=== PATIENT | male | born 1965 | race African-American/Black ===

== ENCOUNTER 2022-07-09 13:45 | Observation (INO) ==
[2022-07-09 14:43] LABS: Basophils # 0.1 K/mcL (0.0-0.2); Basophils % 0.4 %; Eosinophils # 0.1 K/mcL (0.0-0.6); Hemoglobin 14.2 g/dL (12.9-16.9); Immature Granulocytes % 0.4 % (0-4); Lymphocytes # 1.6 K/mcL (0.6-4.6); Lymphocytes % 13.5 %; Mean Corpuscular HGB Conc 32.3 g/dL (31.6-35.5); Mean Corpuscular Hemoglobin 29.3 pg (28.0-33.3); Mean Corpuscular Volume 90.9 fL (83.0-100.0); Mean Platelet Volume 10.3 fL (9.4-12.4); Monocytes # 0.8 K/mcL (0.0-1.3); Monocytes % 6.4 %; Neutrophils # 9.4 K/mcL (1.6-8.9); Platelet Count 286 K/mcL (140-400); Red Blood Count 4.84 M/mcL (4.19-5.50); Red Cell Distribution Width 15.2 % (11.5-14.5); Segmented Neutrophils % 78.3 %; White Blood Count 11.9 K/mcL (4.3-11.1)
[2022-07-09] MEDS ORDERED: *HR* Metoprolol 5 MG/5 ML VIAL IVP ONE ×2 (14:54→16:43)
[2022-07-09] MEDS ORDERED: Acetaminophen 325 MG TABLET PO ONE (14:54)
[2022-07-09 15:08] LABS: INR 1.4; Prothrombin Time 15.4 Seconds (9.4-12.1)
[2022-07-09 15:22] LABS: Alanine Aminotransferase 14 Units/L (7-52); Albumin 3.7 g/dL (3.5-5.7); Albumin/Globulin Ratio 1.3 (1.1-2.2); Alkaline Phosphatase 63 Units/L (34-104); Aspartate Amino Transferase 15 Units/L (13-39); BUN/Creatinine Ratio 17 (6-26); Bilirubin,Total 0.4 mg/dL (0.3-1.0); Blood Urea Nitrogen 20 mg/dL (6-20); Calcium 8.7 mg/dL (8.6-10.3); Carbon Dioxide 27 mEq/L (23-29); Chloride 105 mEq/L (98-107); Globulin 2.8 g/dL (2.4-3.5); Glucose 143 mg/dL (70-105); Osmolality,Calculated 295 (280-300); Potassium 3.4 mEq/L (3.5-5.1); Sodium 140 mEq/L (136-145); Total Protein 6.5 g/dL (6.4-8.9); Troponin I < 0.03 ng/mL (< 0.04)
[2022-07-09] MEDS ORDERED: Melatonin 3 MG TABLET PO PRN (19:47)
[2022-07-09] MEDS ORDERED: Ondansetron ODT 4 MG TAB.RAPDIS SL PRN (19:47)
[2022-07-09] MEDS ORDERED: Acetaminophen 325 MG TABLET PO PRN (19:47)
[2022-07-09] MEDS ORDERED: Naloxone 0.4 MG/ML INJ IVP PRN (19:47)
[2022-07-09] MEDS: Apixaban 5 MG TABLET PO SCH (22:01)
[2022-07-09] MEDS: Metoprolol XL (24 HR) Succ 25 MG TAB.ER.24H PO SCH (22:04)
[2022-07-09 22:22] LABS: Bilirubin,Urine Negative (Negative); Blood,Urine Negative (Negative); Clarity,Urine Clear (Clear); Color,Urine Light-Yellow (Yellow); Glucose,Urine (UA) Normal (Normal); Ketones,Urine Negative (Negative); Leukocyte Esterase,Urine Negative (Negative); Nitrite,Urine Negative (Negative); Protein,Urine Trace mg/dL (Neg-Trace); Specific Gravity,Urine 1.018 (1.010-1.025); Urobilinogen,Urine Normal (Normal)
[2022-07-09 22:33] LABS: Amphetamine Screen,Urine Negative ng/mL (Cutoff=1000); Barbiturate Screen,Urine Negative ng/mL (Cutoff=200); Benzodiazepines Screen,Urine Negative ng/mL (Cutoff=200); Cannabinoid Screen,Urine Negative ng/mL (Cutoff = 50); Cocaine Screen,Urine Negative ng/mL (Cutoff= 300); Opiate Screen,Urine Negative ng/mL (Cutoff=300); Phencyclidine Screen,Urine Negative ng/mL (Cutoff=25)
[2022-07-09 22:35] LABS: Troponin I < 0.03 ng/mL (< 0.04)
[2022-07-09 22:46] LABS: Thyroid Stimulating Hormone 0.871 mcIU/mL (0.340-5.600)
[2022-07-10 01:31] LABS: Hematocrit 42.1 % (37.5-50.1); Hemoglobin 13.7 g/dL (12.9-16.9); Mean Corpuscular HGB Conc 32.5 g/dL (31.6-35.5); Mean Corpuscular Hemoglobin 29.9 pg (28.0-33.3); Mean Corpuscular Volume 91.9 fL (83.0-100.0); Mean Platelet Volume 10.6 fL (9.4-12.4); Platelet Count 244 K/mcL (140-400); Red Blood Count 4.58 M/mcL (4.19-5.50); Red Cell Distribution Width 15.6 % (11.5-14.5); White Blood Count 10.1 K/mcL (4.3-11.1)
[2022-07-10 01:53] LABS: Calcium 8.4 mg/dL (8.6-10.3); Chol/HDL Ratio 1.6 (0-4.9); Magnesium 1.9 mg/dL (1.6-2.6); Phosphorous 3.4 mg/dL (2.7-4.5); Potassium 3.3 mEq/L (3.5-5.1)
[2022-07-10] MEDS ORDERED: Albuterol 2.5 MG/3 ML NEBULIZER IH PRN (08:34)
[2022-07-10] MEDS: Aspirin Enteric Coated 81 MG Tablet PO SCH (09:07)
[2022-07-10] MEDS: Metoprolol XL (24 HR) Succ 25 MG TAB.ER.24H PO SCH ×2 (09:07→20:34)
[2022-07-10] MEDS: Apixaban 5 MG TABLET PO SCH ×2 (09:07→20:35)
[2022-07-10] MEDS ORDERED: Regadenoson 0.4 MG/5 ML SYRINGE IVP ONE (10:01)
[2022-07-10] MEDS ORDERED: Furosemide 20 MG TABLET PO PRN (14:19)
[2022-07-10] MEDS ORDERED: Fluticasone Propionate Nasal 50 MCG/SPRAY BOTTLE NS PRN (14:19)
[2022-07-10] MEDS ORDERED: *HR* Metoprolol 5 MG/5 ML VIAL IVP PRN (14:21)
[2022-07-10] MEDS: Metoprolol XL (24 HR) Succ 25 MG TAB.ER.24H PO ONE ×2 (15:07→15:55)
[2022-07-10] MEDS: hydrALAZINE 25 MG TABLET PO SCH ×2 (15:13→20:34)
[2022-07-11 07:11] VITALS: BP 113/74; PULSE 76; TEMP 97.5; O2SAT 91
[2022-07-11] MEDS ORDERED: lisinopriL 20 MG TABLET PO SCH (09:00)
[2022-07-11] MEDS ORDERED: Mesalamine [Lialda] 1.2 GM Tablet.Dr PO SCH (09:00)
[2022-07-11] MEDS: Aspirin Enteric Coated 81 MG Tablet PO SCH (09:15)
[2022-07-11] MEDS: Apixaban 5 MG TABLET PO SCH (09:17)
[2022-07-11] MEDS: hydrALAZINE 25 MG TABLET PO SCH (09:17)
[2022-07-11] MEDS: Metoprolol XL (24 HR) Succ 25 MG TAB.ER.24H PO SCH (09:18)
== END 2022-07-11 11:29 | disposition home or self-care (01) ==
LOC: 2ANU 13:45 → EMEROOARM 13:45 → SUATTDRO 20:47 → 2ANU 21:35
PROVIDERS: ADMIT Internal Medicine; ATTEND Nurse Practitioner